=== PATIENT | male | born 1970 | race Caucasian/White ===

== ENCOUNTER → 2023-05-17 | Outpatient (CLI) | payer OTHER, SELFPAY ==
--- NOTE | 2023-05-17 14:12 | NEURO ---
NCS and/or EMG Patient Report Ordering Doctor: En Pierre DATE OF SERVICE: 05/17/23 Waldo presents for electrodiagnostic testing of the right upper limb. He reports numbness and tingling in the right hand, primarily digits 1 through 4. Electrodiagnostic findings: Right median motor nerve demonstrates normal distal latency and amplitude with reduction of conduction velocity. Right ulnar motor response is within normal limits. Normal median and ulnar F?waves. Prolonged right median sensory latency at the wrist. Normal ulnar and radial sensory responses. Needle EMG testing was performed in the right upper limb. All muscles tested showed no evidence of denervation with normal motor unit action potentials. Electrodiagnostic impression: This is an abnormal study in the right upper limb 1. Electrodiagnostic findings suggestive of right-sided median mononeuropathy. This is consistent with a mild right carpal tunnel syndrome 2. No electrodiagnostic evidence is noted for cervical radiculopathy. Multi Select Codes Neurology Neurology Interp Codes: 69850-59 Musc test done w/n test comp (interp) and 39504-17 Nrv cndj test 7-8 studies (interp)
== END | disposition home or self-care (01) ==
PROVIDERS: Referring Provider Family Medicine; Visit Provider Family Medicine
DX: R20.2 Paresthesia of skin (principal)
CPT/HCPCS: 95886; 95910